=== PATIENT | female | born 1990 | race Two or more races ===

== ENCOUNTER 2021-02-16 11:56 | Emergency (ER) | payer OTHER, MEDICAID ==
[~2021-02-16] VITALS: Ht 162.6 cm; Wt 60.0 kg
[2021-02-16] MEDS ORDERED: IBUPROFEN 600MG TABLET PO ONE (13:15)
[2021-02-16] MEDS ORDERED: ONDANSETRON HCL 4MG/2ML INJ IV ONE (14:15)
[2021-02-16] MEDS ORDERED: LEVETIRACETAM 500MG PREMIX 100 ML IV ONE (15:15)
[2021-02-16] MEDS ORDERED: MORPHINE SULFATE 4 MG/ML CPJ (NOT FOR IM USE) IV ONE (15:15)
[2021-02-16] MEDS ORDERED: CEFTRIAXONE 1 G PREMIX 50 ML IV ONE (16:15)
[2021-02-16] MEDS ORDERED: TETRACAINE 0.5% OPHTH DROPS 4ML RIGHTEYE ONE (19:15)
[2021-02-16 22:40] VITALS: BP 98/50
== END 2021-02-16 23:10 | disposition short-term general hospital (02) ==
LOC: ER 11:56
DX: S02.85XA Fracture of orbit, unspecified, initial encounter for closed fracture (principal); S06.0X0A Concussion without loss of consciousness, initial encounter; S01.111A Laceration without foreign body of right eyelid and periocular area, initial encounter; S01.81XA Laceration without foreign body of other part of head, initial encounter; H11.31 Conjunctival hemorrhage, right eye; Y04.0XXA Assault by unarmed brawl or fight, initial encounter; Y93.89 Activity, other specified; Y92.89 Other specified places as the place of occurrence of the external cause; Y99.8 Other external cause status
CPT/HCPCS: 12013; 70450; 70486; 96365; 96367; 96375; 99285; J0696; J1953; J2270; J2405; Z7610